=== PATIENT | male | born 1985 ===

== ENCOUNTER 2017-04-21 18:05 | Emergency (ER) | payer OTHER ==
[2017-04-21 18:17] VITALS: BP 177/90; PULSE 92; RESP 18; TEMP 98.1; O2SAT 98
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
[2017-04-21] MEDS ORDERED: Hydrogen Peroxide 3% Soln (480ml) TP ONE (20:27)
== END 2017-04-21 21:05 | disposition home or self-care (01) ==
LOC: H.ER 18:05
DX: Z48.02 Encounter for removal of sutures (principal)